=== PATIENT | male | born 1950 | race Hispanic/Latino ===

== ENCOUNTER 2016-11-27 16:09 | Emergency (ER) | payer MEDICARE, OTHER ==
[2016-11-27 16:09] VITALS: BMI 23.0
[2016-11-27 16:27] VITALS: BP 118/76; PULSE 89; TEMP 99.1
[2016-11-27 17:13] VITALS: RESP 18; O2SAT 98
[2016-11-27 18:01] LABS: ADD MANUAL DIFF? NO
[2016-11-27 18:08] LABS: BASO # 0.01 K/mm3 (0.0-2.0); BASO % 0.1 % (0.0-3.0); EOS % 0.1 % (1.5-5.0); GRAN # 15.66 (1.4-6.5); GRAN % 88.8 % (50.0-68.0); LYMPH # 1.1 (1.2-3.4); MEAN CELL VOLUME 63.3 fL (80.0-105.0); MEAN CORPUSCULAR HGB CONC 33.2 g/dl (31.0-37.0); MEAN PLATELET VOLUME 9.8 fl (7.0-11.0); MONO # 0.9 (0.1-0.6); PLATELET COUNT 166 10^3/uL (120.0-450.0); WHITE BLOOD COUNT 17.6 10^3/ul (4.5-11.0)
[2016-11-27 18:20] LABS: INR 1.03 (0.93-1.08); PARTIAL THROMBOPLASTIN TIME 29.9 Seconds (23.7-30.8)
--- NOTE | 2016-11-27 18:37 | US ---
PROCEDURE: Left lower extremity venous US HISTORY: Leg pain and swelling. Evaluate for DVT. PHYSICIAN(S): Beck Mcfarland MD. TECHNIQUE: Duplex sonography and color-flow Doppler with graded compression were used to evaluate the deep venous system of the left lower extremity. The exam is somewhat limited by edema. FINDINGS: The visualized deep venous system of the left lower extremity is sonographically normal and compressible. Normal wave forms and augmentation are seen. There is no sonographic evidence for deep venous thrombosis in the visualized segments of the left lower extremity. IMPRESSION: 1. No sonographic evidence for deep venous thrombosis in the visualized segments of the left lower extremity.
[2016-11-27 18:41] LABS: ALB/GLOB RATIO 1.3 (1.1-1.8); ALKALINE PHOSPHATASE 48 U/L (38-133); ALT/SGPT 36 U/L (7-56); AST/SGOT 37 U/L (15-59); BILIRUBIN,TOTAL 1.4 mg/dL (0.2-1.3); BLOOD UREA NITROGEN 16 mg/dL (7-21); CALCIUM 9.1 mg/dL (8.4-10.5); CARBON DIOXIDE 27 mmol/L (21-33); CHLORIDE 97 mmol/L (98-107); GFR AFRICAN-AMERICAN > 60; GLUCOSE,RANDOM 119 mg/dL (70-110); POTASSIUM 4.2 mmol/L (3.6-5.0); SODIUM 134 mmol/L (132-148); TOTAL PROTEIN 7.6 g/dL (5.8-8.3)
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
== END 2016-11-27 19:32 | disposition home or self-care (01) ==
LOC: ED 16:09
DX: L03.116 Cellulitis of left lower limb (principal); Z88.0 Allergy status to penicillin

== ENCOUNTER 2016-12-03 16:24 | Emergency (ER) | payer MEDICARE, OTHER ==
[2016-12-03 16:24] VITALS: BMI 23.0
== END 2016-12-03 16:36 | disposition left against medical advice (07) ==
LOC: ED 16:24
DX: Z02.89 Encounter for other administrative examinations (principal); M79.606 Pain in leg, unspecified

== ENCOUNTER 2017-04-02 07:40 | Day surgery (SDC) | payer MEDICARE, OTHER ==
[2017-04-02] MEDS ORDERED: Propofol 10 mg/ml Inj (20 ML) ONE (09:05)
[2017-04-02] MEDS ORDERED: Sodium Chloride 0.9% 1,000 ML IV SCH (09:30)
[2017-04-02 09:59] VITALS: PULSE 52
[2017-04-02 11:01] VITALS: BP 113/75; RESP 16; TEMP 97.8; O2SAT 100
== END 2017-04-02 10:40 | disposition home or self-care (01) ==
LOC: ENDO 07:40
PROVIDERS: ATTEND Specialist
DX: K20.9 Esophagitis, unspecified (principal); K29.50 Unspecified chronic gastritis without bleeding; K44.9 Diaphragmatic hernia without obstruction or gangrene; B96.81 Helicobacter pylori [H. pylori] as the cause of diseases classified elsewhere; D64.9 Anemia, unspecified; N40.0 Benign prostatic hyperplasia without lower urinary tract symptoms; Z96.642 Presence of left artificial hip joint
CPT/HCPCS: 43239; 88305; 88312; 88342; J2704; J7040 ×2